=== PATIENT | female | born 1960 | race Caucasian/White ===

== ENCOUNTER → 2016-12-26 | Outpatient (CLI) | payer OTHER ==
--- NOTE | 2016-12-27 09:57 | MM ---
Reason for exam: screening (asymptomatic). Last mammogram was performed 1 year ago. History: Family history of breast cancer in mother at age 63 and breast cancer in sister at age 48. Benign right mammotome panel of the right breast, December 03, 2007. Physical Findings: A clinical breast exam by your physician is recommended on an annual basis and results should be correlated with mammographic findings. MG Screening Mammo w CAD Bilateral CC and MLO view(s) were taken. Prior study comparison: December 21, 2015, bilateral MG screening mammo w CAD. December 19, 2014, bilateral MG screening mammo w CAD. The breast tissue is heterogeneously dense. This may lower the sensitivity of mammography. Finding: There are typically benign calcifications. There is no discrete abnormality. No significant changes in finding since December 21, 2015 and December 19, 2014. ASSESSMENT: Benign, BI-RAD 2 RECOMMENDATION: Routine screening mammogram of both breasts in 1 year.
== END | disposition home or self-care (01) ==
LOC: RADMAMWWP 09:33
PROVIDERS: ATTEND Internal Medicine
DX: Z12.31 Encounter for screening mammogram for malignant neoplasm of breast (principal)

== ENCOUNTER → 2018-01-18 | Outpatient (CLI) | payer OTHER ==
--- NOTE | 2018-01-19 09:53 | MM ---
Reason for exam: screening (asymptomatic). Last mammogram was performed 1 year and 1 month ago. History: Patient is postmenopausal. Family history of breast cancer in mother at age 63 and breast cancer in sister at age 48. Benign right mammotome panel of the right breast, December 03, 2007. Physical Findings: A clinical breast exam by your physician is recommended on an annual basis and results should be correlated with mammographic findings. MG Screening Mammo w CAD Bilateral CC and MLO view(s) were taken. Prior study comparison: December 26, 2016, bilateral MG screening mammo w CAD. December 21, 2015, bilateral MG screening mammo w CAD. The breast tissue is heterogeneously dense. This may lower the sensitivity of mammography. Previous microcalcifications in the right breast. Previous mammotome biopsy in the right breast. No significant changes when compared with prior studies. ASSESSMENT: Benign, BI-RAD 2 RECOMMENDATION: Routine screening mammogram of both breasts in 1 year.
== END | disposition home or self-care (01) ==
LOC: RADMAMWWP 09:42
PROVIDERS: ATTEND Internal Medicine
DX: Z12.31 Encounter for screening mammogram for malignant neoplasm of breast (principal)
CPT/HCPCS: 77067

== ENCOUNTER → 2019-02-01 | Outpatient (CLI) | payer OTHER ==
--- NOTE | 2019-02-05 11:31 | MM ---
Reason for exam: screening (asymptomatic). Last mammogram was performed 1 year ago. History: Patient is postmenopausal. Family history of breast cancer in mother at age 63 and breast cancer in sister at age 48. Benign right mammotome panel of the right breast, December 03, 2007. Physical Findings: A clinical breast exam by your physician is recommended on an annual basis and results should be correlated with mammographic findings. MG Screening Mammo w CAD Bilateral CC and MLO view(s) were taken. Prior study comparison: January 18, 2018, bilateral MG screening mammo w CAD. December 26, 2016, bilateral MG screening mammo w CAD. The breast tissue is heterogeneously dense. This may lower the sensitivity of mammography. There are benign appearing round calcifications bilaterally. Previous mammotome biopsy in the right breast. There is no discrete abnormality. ASSESSMENT: Benign, BI-RAD 2 RECOMMENDATION: Routine screening mammogram of both breasts in 1 year.
== END | disposition home or self-care (01) ==
LOC: RADMAMWWP 07:31
PROVIDERS: ATTEND Internal Medicine
DX: Z12.31 Encounter for screening mammogram for malignant neoplasm of breast (principal)
CPT/HCPCS: 77067

== ENCOUNTER → 2020-05-04 | Outpatient (CLI) | payer OTHER ==
--- NOTE | 2020-05-04 18:36 | BD ---
EXAMINATION TYPE: Axial Bone Density DATE OF EXAM: 05/04/2020 COMPARISON: NONE CLINICAL HISTORY: POSTMENOPAUSAL SCREENING Height: 4 FT 10 1/2 IN Weight: 151 FRAX RISK QUESTIONS: Alcohol (3 or more units per day): NO Family History (Parent hip fracture): NO Glucocorticoids (More than 3mos): NO (Ex: prednisone, prednisolone, methylprednisolone, dexamethasone, and hydrocortisone). History of Fracture in Adulthood: NO Secondary Osteoporosis: 1. Type 1 Diabetes: NO 2. Hyperthyroidism: NO 3. Menopause before 45: NO 4. Malnutrition: NO 5. Chronic liver disease: NO Rheumatoid Arthritis: NO Current Tobacco Use: NO RISK FACTORS HISTORY OF: Family History of Osteoporosis: YES Active: YES Postmenopausal woman: AGE 57 Lost more than 2 inches in height since high school: YES MEDICATIONS: Additional Medications: MULTI Additional History: EXAM MEASUREMENTS: Bone mineral densitometry was performed using the [facility]. Bone mineral density as measured about the Lumbar spine is: ----- L1-L4(G/cm2): 1.029 T Score Values are as follows: ----- L2: -1.4 ----- L3: -0.8 ----- L4: -1.3 ----- L1-L4: -1.3 BASELINE Bone mineral density about the R hip (g/cm2): 1.012 Bone mineral density about the L hip (g/cm2): 0.978 T Score values are as follows: -----R Neck: -0.2 -----L Neck: -0.4 -----R Total: 0.6 -----L Total: 0.5 BASELINE IMPRESSION: Osteopenia (T Score between -2.5 and -1). There is slightly increased risk of fracture and the patient may be considered for treatment. Re-Screen 2-5 years. NOTE: T-SCORE=SD OF THE YOUNG ADULT MEAN.
--- NOTE | 2020-05-05 11:06 | MM ---
Reason for exam: screening (asymptomatic). Last mammogram was performed 1 year and 3 months ago. History: Patient is postmenopausal. Family history of breast cancer in mother at age 63 and breast cancer in sister at age 48. Benign right mammotome panel of the right breast, December 03, 2007. Physical Findings: A clinical breast exam by your physician is recommended on an annual basis and results should be correlated with mammographic findings. MG 3D Screening Mammo W/Cad Bilateral CC and MLO view(s) were taken. Prior study comparison: February 01, 2019, bilateral MG screening mammo w CAD. January 18, 2018, bilateral MG screening mammo w CAD. The breast tissue is heterogeneously dense. This may lower the sensitivity of mammography. Finding #1: There is a 8 mm indistinct oval mass located 4 cm from the nipple in the inner quadrant, anterior middle position of the right breast on CC 42/71 and possible MLO 58/78 and a 7mm oval circular lesion in the left anterior breast on MLO 59/24 and CC 39/77. Finding #2: There are typically benign round calcifications in both breasts. Previous mammotome biopsy in the right breast. New finding since February 01, 2019 and January 18, 2018. ASSESSMENT: Incomplete: need additional imaging evaluation, BI-RAD 0 RECOMMENDATION: Ultrasound of both breasts. [facility] will attempt to contact patient to return for ultrasound.
== END | disposition home or self-care (01) ==
LOC: RADMAMWWP 14:46
PROVIDERS: ATTEND Family Medicine
DX: Z12.31 Encounter for screening mammogram for malignant neoplasm of breast (principal); Z80.3 Family history of malignant neoplasm of breast; M85.80 Other specified disorders of bone density and structure, unspecified site
CPT/HCPCS: 77063; 77067; 77080

== ENCOUNTER → 2020-05-20 | Outpatient (CLI) | payer OTHER ==
--- NOTE | 2020-05-20 11:44 | USB ---
Reason for exam: additional evaluation requested from abnormal screening. History: Patient is postmenopausal. Family history of breast cancer in mother at age 63 and breast cancer in sister at age 48. Benign right mammotome panel of the right breast, December 03, 2007. Physical Findings: Nurse did not find any significant physical abnormalities on exam. US Breast Workup Limited [place] Right limited breast ultrasound including focal area of concern, retroareolar and axilla demonstrates a 1.2 x 1.4 x 0.7cm oval, cystic cluster at 1 o'clock and a 0.6 x 0.7 x 0.3cm oval, complex, cystic lesion at 1 o'clock for which a biopsy is recommended. Left limited breast ultrasound including focal area of concern, retroareolar and axilla demonstrates a 0.7 x 0.9 x 0.5cm oval, lobular, mixed lesion at 12 o'clock for which a biopsy is recommended, a 0.5 x 0.5 x 0.3cm oval, cystic lesion with debris at 3 o'clock and a 0.5 x 0.4 x 0.2cm mild duct ectasia versus collapsed cyst at 11 o'clock. Scanned right breast 12-5 o'clock and left breast zone A whole breast periareolar. These results were verbally communicated with the patient and result sheet given to the patient on 05/20/20. ASSESSMENT: Suspicious, BI-RAD 4 RECOMMENDATION: Ultrasound core biopsy of both breasts. Called Dr. Conley's office with mammographic findings and left message. Biopsy scheduled for 05/26/20 at 12:00. PRELIMINARY REPORT CALLED AND FAXED TO DR. CONLEY ON 05/20/20.
== END | disposition home or self-care (01) ==
LOC: RADUSWWP 09:33
PROVIDERS: ATTEND Family Medicine
DX: R92.8 Other abnormal and inconclusive findings on diagnostic imaging of breast (principal)

== ENCOUNTER → 2020-05-26 | Day surgery (SDC) | payer OTHER ==
[2020-05-26 12:07] VITALS: RESP 16
[2020-05-26 14:35] VITALS: BP 150/83; PULSE 68; TEMP 98
--- NOTE | 2020-05-26 15:35 | USB ---
EXAMINATION TYPE: US biopsy breast VAD LT, US biopsy breast VAD RT, MG post biopsy diagnostic mammo BI wo CAD DATE OF EXAM: 05/26/2020 CLINICAL HISTORY: 59-year-old female R92.8 abn. mammo. Referred for ultrasound- guided bilateral breast biopsies. TECHNIQUE: Ultrasound guided core biopsy of the bilateral breasts. COMPARISON: 05/04/2020 FINDINGS: The procedure of ultrasound guided core biopsy was explained to the patient. Benefits, alternatives, and risks were discussed. An informed consent was then obtained. The patient was placed in supine positioning for imaging and for the procedure. The overlying skin was prepped and draped in usual sterile fashion. Lidocaine was used as anesthetic into the skin and subcutaneous tissue up to area of concern in each breast in turn. SITE 1 - 1:00 mixed lesion: Under ultrasound guidance, a 13-gauge vacuum- assisted mammotome Elite biopsy gun device was used to obtain 7 core samples. Following this, a coil clip was left at the site of biopsy. SITE 1 - 12:00 solid lesion versus complicated cyst: Under ultrasound guidance, a 13-gauge vacuum-assisted mammotome Elite biopsy gun device was used to obtain 3 core samples. Following this, a ribbon clip was left at the site of biopsy. Of note, the lesion collapsed after the first pass. The patient tolerated the procedure well without any immediate complication. The patient was kept in the radiology department for short stay after the procedure and then discharged home in stable condition. Post procedure mammogram shows clips at the site of mammographic nodularity. IMPRESSION: 1. Successful, uncomplicated ultrasound guided core biopsy of 1:00 indeterminate mixed lesion. 2. Successful, uncomplicated ultrasound guided core biopsy of the 12:00 complicated cyst (as the lesion collapsed after the first pass), very low suspicion. Full pathology results to follow. Pathology Results: High Risk A. RIGHT BREAST, ULTRASOUND GUIDED CORE BIOPSY: Proliferative fibrocystic changes including radial scar, usual type ductal hyperplasia with papillomatosis, fibrosis, cysts, apocrine metaplasia, sclerosing adenosis and rare microcalcifications. B. LEFT BREAST, ULTRASOUND GUIDED CORE BIOPSY: Features suggestive of apocrine cyst wall with scar/fibrosis, fat necrosis and inflammation in a background of fibrocystic changes. Recommendation Surgical consult right breast 1 o'clock site for radial scar and papillomatosis. MTDD
== END ==
LOC: RADUSWWP 11:53
PROVIDERS: ATTEND Family Medicine
DX: N60.11 Diffuse cystic mastopathy of right breast (principal); N62 Hypertrophy of breast; N60.81 Other benign mammary dysplasias of right breast; R92.8 Other abnormal and inconclusive findings on diagnostic imaging of breast
CPT/HCPCS: 88305; 77066; 19083; 19084; A4648; J2001

== ENCOUNTER 2020-08-17 06:47 | Day surgery (SDC) | payer OTHER ==
[2020-08-13 13:03] VITALS: BMI 27.3
[~2020-08-17 06:47] MED LIST: ACETAMINOPHEN TAB 500 MG TAB PO PRN; DEXAMETHASONE SOD PHOSPHATE 4 MG/ML 1 ML VIAL IV ONE; HEPARIN SODIUM,PORCINE 5,000 UNIT/ML 1 ML VIAL SQ PRN; HYDROmorphone 0.5 MG/0.5 ML SYRINGE IVP PRN; LACTATED RINGERS 1,000 ML IV SCH; LIDOCAINE 1% (10MG/ML) FOR IV START INTRADERMA PRN; MIDAZOLAM 2 MG/2 ML VIAL IV PRN; ONDANSETRON 4 MG/2 ML VIAL IVP ONE; Pre Op ABX Message 1 EACH MISC MISCELLANE ONE
[2020-08-17] MEDS ORDERED: ALPRAZolam 0.25 MG TAB ONE (07:23)
[2020-08-17] MEDS ORDERED: ALPRAZolam 0.25 MG TAB PO ONE (07:24)
--- NOTE | 2020-08-17 07:58 | P.GSHP ---
History of Present Illness H&P Date: 08/17/20 Chief Complaint: abnormal right mammogram Please refer to recent history and physical from June. Patient had bilateral core biopsies performed. Radial scar identified on the right-hand side. Here today for right breast wire localization biopsy. No additional changes to the history and physical dictated previously. Past Medical History Past Medical History: Hyperlipidemia Additional Past Medical History / Comment(s): NO MEDS AT THIS TIME History of Any Multi-Drug Resistant Organisms: None Reported Past Surgical History: Orthopedic Surgery Additional Past Surgical History / Comment(s): ABDOMINOPLASTY. LT SHOULDER SX Past Anesthesia/Blood Transfusion Reactions: No Reported Reaction Smoking Status: Never smoker - Past Family History Father Family Medical History: Deep Vein Thrombosis (DVT) Mother Sister(s) Family Medical History: Cancer Additional Family Medical History / Comment(s): BREAST Medications and Allergies Home Medications Medication Instructions Recorded Confirmed Type No Known Home Medications 08/13/20 08/17/20 History Allergies Allergy/AdvReac Type Severity Reaction Status Date / Time No Known Allergies Allergy Verified 08/17/20 07:11 Surgical - Exam Vital Signs Temp Pulse Resp BP Pulse Ox 96.9 F L 72 16 153/76 98 08/17/20 07:00 08/17/20 07:00 08/17/20 07:00 08/17/20 07:00 08/17/20 07:00 Physical exam: General: Well-developed, well-nourished HEENT: Normocephalic, sclerae nonicteric Right breast: No masses, no adenopathy Left breast: No masses, no adenopathy Abdomen: Nontender, nondistended Extremities: No edema Neuro: Alert and oriented Assessment and Plan (1) Radial scar of right breast Narrative/Plan: Will proceed with wire localized biopsy right breast at this time. Risks of bleeding, infection, scarring, dimpling, numbness, possible need for further surgery reviewed. She understands and wishes to proceed. Current Visit: Yes Status: Acute Code(s): N64.89 - OTHER SPECIFIED DISORDERS OF BREAST SNOMED Code(s): 44249872979032011
[2020-08-17] MEDS ORDERED: LIDOCAINE 1% INJ 10MG/ML (20 ML MDV) SQ ONE (08:28)
[2020-08-17] MEDS ORDERED: MIDAZOLAM 2 MG/2 ML VIAL ONE (09:03)
[2020-08-17] MEDS ORDERED: ePHEDrine SULFATE/0.9% NACL/PF 50 MG/5 ML SYRINGE IV ONE (09:03)
[2020-08-17] MEDS ORDERED: fentaNYL (PF) 50 MCG/ML 2 ML AMP ONE (09:03)
[2020-08-17] MEDS ORDERED: PROPOFOL 10 MG/ML 20 ML VIAL IV ONE (09:03)
[2020-08-17] MEDS ORDERED: LIDOCAINE 1% INJ 10MG/ML (20 ML MDV) ONE (09:03)
[2020-08-17] MEDS ORDERED: KETOROLAC 15 MG/ML 1 ML VIAL ONE (09:03)
[2020-08-17] MEDS ORDERED: SODIUM CHLORIDE 0.9% IV ONE ×2 (09:11)
[2020-08-17] MEDS ORDERED: CEFAZOLIN IV ONE ×2 (09:11)
[2020-08-17] MEDS ORDERED: BUPIVACAIN-EPI 0.25%-1:200,000 30 ML VIAL SQ ONE ×2 (09:31→09:47)
[2020-08-17] MEDS ORDERED: LACTATED RINGERS 1,000 ML IV ONE (09:55)
[2020-08-17 10:05] VITALS: TEMP 97
[2020-08-17] MEDS ORDERED: NALOXONE 0.4 MG/ML 1 ML VIAL IV PRN (10:07)
[2020-08-17] MEDS ORDERED: traMADol 50 MG TAB PO PRN (10:07)
--- NOTE | 2020-08-17 10:09 | P.OP ---
Date of Procedure: 08/17/20 Procedure(s) Performed: PREOPERATIVE DIAGNOSIS: Abnormal right mammogram POSTOPERATIVE DIAGNOSIS: Same PROCEDURE: Right Breast wire localization biopsy SURGEON: Danny EBL: Minimal ANESTHESIA: Sedation plus local COMPLICATIONS: None OPERATIVE PROCEDURE: Patient was placed on the operating room table in the s upine position. The patient's breast was prepped and draped in usual sterile fashion. A curvilinear incision was made adjacent to the areola. Dissection through the subcutaneous tissues down to the wire took place using electrocautery. I followed the wire down into the breast tissue. The breast tissue around the posterior aspect of the wire was fully excised using electrocautery. The specimen was sent for specimen radiogram. The clip was present within the specimen. The subcutaneous tissues were inspected. No bleeding was seen. The subcutaneous tissues were closed using 3-0 Vicryl linn tures. The skin was closed using interrupted 4-0 Monocryl sutures. Skin glue and sterile dressings were applied. DISPOSITION: Stable to recovery room
--- NOTE | 2020-08-17 10:36 | MM ---
EXAMINATION TYPE: MG pre op needle loc RT, MG surgical specimen RT DATE OF EXAM: 08/17/2020 COMPARISON: Prior mammogram May 26, 2020 and older mammograms. CLINICAL HISTORY: Biopsy-proven high risk lesion right breast. TECHNIQUE: Needle localization with wire placement and surgical excision of area of concern in the [facility]. FINDINGS: The procedure of needle localization with wire placement and than surgical excision was exp lained to the patient. Benefits, alternatives, and risks were discussed. An informed consent was th en obtained. The shortest pathway for procedure was chosen. Shortest pathway was medial approach. The overlying s kin was prepped and draped in usual sterile fashion. Lidocaine is used as anesthetic into the skin an d subcutaneous tissue up to the level of area of concern. A 5 cm needle was used. It was placed via a medial approach under mammographic guidance. Subsequent 90 degrees mammogram show the needle to b e in satisfactory position relative to the targeted area. At this point, wire was placed and the nee dle was withdrawn. The wire was fixed to patient's skin. Images were marked for surgeon. The patient tolerated the procedure well without any immediate complication. The patient was kept in the radiology department for short stay after the procedure and then taken to surgery for surgical e xcision. Targeted clip is identified in specimen mammogram. Targeted wire not identified. Wire was d isplaced during surgery. The patient was kept in hospital for short stay after the procedure and then discharged home in stable condition. IMPRESSION: Successful, uncomplicated needle localization with wire placement and surgical excision o f targeted clip in the right breast, full pathology results to follow.
[2020-08-17 11:20] VITALS: BP 132/84; PULSE 72; RESP 18
== END 2020-08-17 11:25 | disposition home or self-care (01) ==
LOC: OR 06:47
PROVIDERS: ATTEND Surgery
DX: N60.11 Diffuse cystic mastopathy of right breast (principal); N60.21 Fibroadenosis of right breast; N60.81 Other benign mammary dysplasias of right breast; R92.0 Mammographic microcalcification found on diagnostic imaging of breast; N64.89 Other specified disorders of breast; E78.5 Hyperlipidemia, unspecified; M26.609 Unspecified temporomandibular joint disorder, unspecified side; Z98.890 Other specified postprocedural states; Z82.49 Family history of ischemic heart disease and other diseases of the circulatory system; Z80.3 Family history of malignant neoplasm of breast
CPT/HCPCS: 88307; 76098; 19281; 19125; J2250; J1644; J1100; J2405; J0690; J2001; J3010; J1885; J2704

== ENCOUNTER → 2021-02-15 | Outpatient (CLI) | payer OTHER ==
--- NOTE | 2021-02-15 10:17 | MM ---
Reason for exam: follow-up at short interval from prior study. Last mammogram was performed 9 months ago. History: Patient is postmenopausal and has history of high-risk lesion on a previous biopsy at age 59. Family history of breast cancer in mother at age 63 and breast cancer in sister at age 48. Benign MG pre op needle loc RT of the right breast, August 17, 2020. High risk US biopsy breast VAD LT of the left breast, May 26, 2020. High risk US biopsy breast VAD RT of the right breast, May 26, 2020. Benign right mammotome panel of the right breast, December 03, 2007. Physical Findings: Nurse did not find any significant physical abnormalities on exam. MG 3D Diag Mammo W/Cad [place] Bilateral CC and MLO view(s) were taken. Prior study comparison: May 26, 2020, bilateral MG diagnostic tali BI wo CAD. May 04, 2020, bilateral MG 3d screening mammo w/cad. February 01, 2019, bilateral MG screening mammo w CAD. January 18, 2018, bilateral MG screening mammo w CAD. December 26, 2016, bilateral MG screening mammo w CAD. December 21, 2015, bilateral MG screening mammo w CAD. The breast tissue is heterogeneously dense. This may lower the sensitivity of mammography. Previous mammotome biopsy in the right breast. Posterior central left MLO asymmetric density stable corresponds to the 2016 study. Some focal density approximately 10 o'clock near site of previous clip likely scar, 6 month follow up. These results were verbally communicated with the patient and result sheet given to the patient on 02/15/21. ASSESSMENT: Incomplete: need additional imaging evaluation, BI-RAD 0 RECOMMENDATION: Ultrasound of the right breast.
--- NOTE | 2021-02-15 10:19 | USB ---
Reason for exam: additional evaluation requested from abnormal screening. History: Patient is postmenopausal and has history of high-risk lesion on a previous biopsy at age 59. Family history of breast cancer in mother at age 63 and breast cancer in sister at age 48. Benign MG pre op needle loc RT of the right breast, August 17, 2020. High risk US biopsy breast VAD LT of the left breast, May 26, 2020. High risk US biopsy breast VAD RT of the right breast, May 26, 2020. Benign right mammotome panel of the right breast, December 03, 2007. US Breast RT Right complete breast ultrasound includes all four quadrants, the retroareolar region and axilla. Finding demonstrates a 4 x 3 x 7mm oval, cystic, mixed lesion at 12 o'clock, a 2 x 2 x 3mm oval lesion too small to characterize at 2 o'clock, a 4 x 2 x 4mm oval, cystic lesion too small to characterize at 5 o'clock and a 23 x 4 x 12mm cystic cluster at 8 o'clock likely fibrocystic change. These results were verbally communicated with the patient and result sheet given to the patient on 02/15/21. ASSESSMENT: Probably benign, BI-RAD 3 RECOMMENDATION: Follow-up diagnostic mammogram of the right breast in 6 months.
== END | disposition home or self-care (01) ==
LOC: RADUSWWP 07:56
PROVIDERS: ATTEND Surgery
DX: N60.01 Solitary cyst of right breast (principal); N64.89 Other specified disorders of breast; Z78.0 Asymptomatic menopausal state; Z80.3 Family history of malignant neoplasm of breast
CPT/HCPCS: 77062; 77066

== ENCOUNTER → 2021-08-18 | Outpatient (CLI) | payer OTHER ==
--- NOTE | 2021-08-18 11:38 | MM ---
Reason for exam: screening (asymptomatic). Last mammogram was performed 6 months ago. History: Patient is postmenopausal and has history of high-risk lesion on a previous biopsy at age 59. Family history of breast cancer in mother at age 63 and breast cancer in sister at age 48. Benign MG pre op needle loc RT of the right breast, August 17, 2020. High risk US biopsy breast VAD LT of the left breast, May 26, 2020. High risk US biopsy breast VAD RT of the right breast, May 26, 2020. Benign right mammotome panel of the right breast, December 03, 2007. Physical Findings: Nurse did not find any significant physical abnormalities on exam. MG 3D Diag Mammo W/Cad RT CC and MLO view(s) were taken of the right breast. Prior study comparison: February 15, 2021, bilateral MG 3d diag mammo w/cad [place]. May 26, 2020, bilateral MG diagnostic tali BI wo CAD. The breast tissue is heterogeneously dense. This may lower the sensitivity of mammography. Previous mammotome biopsy in the right breast. No significant new findings when compared with previous films. These results were verbally communicated with the patient and result sheet given to the patient on 08/18/21. ASSESSMENT: Benign, BI-RAD 2 RECOMMENDATION: Routine screening mammogram of both breasts in 6 months.
== END | disposition home or self-care (01) ==
LOC: RADMAMWWP 10:39
PROVIDERS: ATTEND Surgery
DX: R92.2 Inconclusive mammogram (principal); Z80.3 Family history of malignant neoplasm of breast; Z78.0 Asymptomatic menopausal state
CPT/HCPCS: 77061; 77065

== ENCOUNTER → 2022-03-08 | Outpatient (CLI) | payer OTHER ==
--- NOTE | 2022-03-10 07:54 | MM ---
Reason for Exam: Screening (asymptomatic). Last screening mammogram was performed 12 month(s) ago. Patient History: Menarche at age 13. First Full-Term at age 23. Postmenopausal. 08/17/2020, Benign Core Biopsy on the right side. 05/26/2020, High risk Core Biopsy on the left side. 05/26/2020, High risk Core Biopsy on the right side. 12/03/2007, Benign Core Biopsy on the right side. Sister had breast cancer, age 48. Mother had breast cancer, age 63. Risk Values: Kenzie 5 year model risk: 8.6%. NCI Lifetime model risk: 36.9%. Prior Study Comparison: 05/26/2020 Bilateral Diagnostic Mammogram, [facility]. 02/15/2021 Bilateral Diagnostic Mammogram, [facility]. 08/18/2021 Right Diagnostic Mammogram, [facility]. Tissue Density: The breast tissue is heterogeneously dense. This may lower the sensitivity of mammography. Findings: Analyzed By CAD. There are 4 markers present within the bilateral breasts. No suspicious groups of microcalcifications, spiculated or lobular masses, architectural distortion or other secondary signs of malignancy are mammographically apparent. Overall Assessment: Benign, BI-RAD 2 Management: Screening Mammogram of both breasts in 1 year. A negative mammogram report should not preclude additional follow up of suspicious palpable abnormalities. Patient should continue monthly self breast exam. A clinical breast exam by your physician is recommended on an annual basis and results should be correlated with mammographic findings. Electronically signed and approved by: Chema Smith D.O. Radiologis
== END | disposition home or self-care (01) ==
LOC: RADMAMWWP 11:06
PROVIDERS: ATTEND Family Medicine
DX: Z12.31 Encounter for screening mammogram for malignant neoplasm of breast (principal); Z78.0 Asymptomatic menopausal state; Z80.3 Family history of malignant neoplasm of breast
CPT/HCPCS: 77063; 77067

== ENCOUNTER → 2022-05-25 | Outpatient (CLI) | payer OTHER ==
[2022-05-25 11:18] LABS: ALT 10 U/L (8-44); AST 21 U/L (13-35); African American GFR (CKD) 109.1 (60.0-200.0); Albumin 4.8 g/dL (3.8-4.9); Albumin/Globulin Ratio 1.66 (1.60-3.17); Alkaline Phosphatase 67 U/L (41-126); BUN/Creat Ratio 20.86 Ratio (12.00-20.00); Blood Urea Nitrogen 14.6 mg/dL (9.0-27.0); Calcium 9.7 mg/dL (8.7-10.3); Carbon Dioxide 27.4 mmol/L (20.0-27.5); Chloride 102 mmol/L (96-109); Chol/HDL Ratio 3.92 Ratio; Globulin 2.9 g/dL (1.6-3.3); Glucose 98 mg/dL (70-110); LDL Cholesterol,Calculated 151.8 mg/dL (0.0-131.0); Non-African American GFR(CKD) 94.2 (60.0-200.0); Potassium 4.3 mmol/L (3.5-5.5); Sodium 139 mmol/L (135-145); Total Protein 7.7 g/dL (6.2-8.2); VLDL Calculation 15.08 mg/dL (5.00-40.00)
[2022-05-25 16:20] LABS: Basophils # (A) 0.04 X 10*3/uL (0.00-0.10); Basophils % (A) 0.9 %; Eosinophils # (A) 0.03 X 10*3/uL (0.04-0.35); Eosinophils % (A) 0.7 %; HCT 41.2 % (37.2-46.3); HGB 13.9 g/dL (12.0-15.0); Immature Grans, Automated 0.2 %; Lymphocytes % (A) 43.8 %; MCH 31.5 pg (27.0-32.0); MCHC 33.7 g/dL (32.0-37.0); MCV 93.4 fL (80.0-97.0); Mean Platelet Volume 11.2 fL (9.5-12.2); Monocytes # (A) 0.25 X 10*3/uL (0.20-1.00); Monocytes % (A) 5.5 %; NRBC Per 100 WBC 0 /100 WBCS (0.0-0.0); Neutrophils # (A) 2.24 X 10*3/uL (1.80-7.70); Neutrophils % (A) 48.9 %; Platelet Count 273 X 10*3/uL (140-440); RBC 4.41 X 10*6/uL (4.10-5.20); RDW 11.9 % (11.5-14.5); WBC 4.57 X 10*3/uL (4.50-10.00)
== END | disposition home or self-care (01) ==
LOC: LABWHC1 07:38
PROVIDERS: ATTEND Family Medicine
DX: Z00.00 Encounter for general adult medical examination without abnormal findings (principal); E78.2 Mixed hyperlipidemia; E53.8 Deficiency of other specified B group vitamins
CPT/HCPCS: 36415; 80053; 80061; 82607; 84443; 85025

== ENCOUNTER → 2023-03-16 | Outpatient (CLI) | payer OTHER ==
--- NOTE | 2023-03-16 11:48 | MM ---
Reason for Exam: Screening (asymptomatic). Last mammogram was performed 1 year(s) and 1 month(s) ago. Patient History: Menarche at age 13. First Full-Term at age 23. Postmenopausal. 08/17/2020, Benign Core Biopsy on the right side. 05/26/2020, High risk Core Biopsy on the left side. 05/26/2020, High risk Core Biopsy on the right side. 12/03/2007, Benign Core Biopsy on the right side. Sister had breast cancer, age 48. Mother had breast cancer, age 63. Risk Values: Kenzie 5 year model risk: 8.9%. NCI Lifetime model risk: 36.0%. Prior Study Comparison: 02/15/2021 Bilateral Diagnostic Mammogram, [facility]. 08/18/2021 Right Diagnostic Mammogram, [facility]. 03/08/2022 Bilateral MG 3D screening mammo w/cad, [facility]. Tissue Density: The breast tissue is heterogeneously dense. This may lower the sensitivity of mammography. Findings: Analyzed By CAD. Biopsy clips bilaterally. There is no suspicious group of microcalcifications or new suspicious mass in either breast. Overall Assessment: Benign, BI-RAD 2 Management: Screening Mammogram of both breasts in [address] [facility] will attempt to contact patient to return for supplemental views and ultrasound if indicated. Patient should continue monthly self-breast exams. A clinical breast exam by your physician is recommended on an annual basis. This exam should not preclude additional follow-up of suspicious palpable abnormalities. Note on Kenzie scores and lifetime risk: 1. A Kenzie score greater than 3% is considered moderate risk. If this is the case, consider specialist referral to assess eligibility for a risk reducing agent. 2. If overall lifetime risk for the development of breast cancer is 20% or higher, the patient may qualify for future screening with alternating mammogram and breast MRI. Electronically signed and approved by: Sam Gregorio DO
== END | disposition home or self-care (01) ==
LOC: RADMAMWWP 09:17
PROVIDERS: ATTEND Family Medicine
DX: Z12.31 Encounter for screening mammogram for malignant neoplasm of breast (principal); Z78.0 Asymptomatic menopausal state; Z80.3 Family history of malignant neoplasm of breast
CPT/HCPCS: 77063; 77067

== ENCOUNTER → 2024-03-22 | Outpatient (CLI) | payer OTHER ==
--- NOTE | 2024-03-29 21:36 | MM ---
Reason for Exam: Screening (asymptomatic). Last screening mammogram was performed 12 month(s) ago. Patient History: Menarche at age 13. First Full-Term at age 23. Postmenopausal. 08/17/2020, Benign Core Biopsy on the right side. 05/26/2020, High risk Core Biopsy on the left side. 05/26/2020, High risk Core Biopsy on the right side. 12/03/2007, Benign Core Biopsy on the right side. Sister had breast cancer, age 48. Mother had breast cancer, age 63. Mother tested for BRCA1 outcome was negative. Risk Values: Mary Ann 5 year model risk: 9.2%. NCI Lifetime model risk: 35.2%. Prior Study Comparison: 08/18/2021 Right Diagnostic Mammogram, [facility]. 03/08/2022 Bilateral MG 3D screening mammo w/cad, [facility]. 03/16/2023 Bilateral MG 3D screening mammo w/cad, [facility]. Tissue Density: The breasts are heterogeneously dense, which may obscure small masses. Findings: Analyzed By CAD. Bilateral asymmetric densities are again seen. Microclip right breast from prior biopsy. Asymmetric density superior right MLO view just above the retroareolar plane at a middle depth appears more pronounced. Similarly on the left, recommend additional views to exclude subtle underlying distortion. Note patient's increased risk scores. Overall Assessment: Incomplete: need additional imaging evaluation, BI-RAD 0 Management: Special View Mammogram of both breasts. Diagnostic Breast Ultrasound of both breasts. SEE NOTE BELOW IN REGARDS TO PATIENT'S INCREASED 5 YEAR MARY ANN SCORE AND INCREASED LIFETIME RISK SCORE. [facility] will attempt to contact patient to return for supplemental views and ultrasound if indicated. Note on Mary Ann scores and lifetime risk: 1. A Mary Ann score greater than 3% is considered moderate risk. If this is the case, consider specialist referral to assess eligibility for a risk reducing agent. 2. If overall lifetime risk for the development of breast cancer is 20% or higher, the patient may qualify for future screening with alternating mammogram and breast MRI. Electronically signed and approved by: Monroe Bruner M.D. Radiologist
== END | disposition home or self-care (01) ==
LOC: RADMAMWWP 10:30
PROVIDERS: ATTEND Family Medicine
DX: Z12.31 Encounter for screening mammogram for malignant neoplasm of breast (principal); R92.333 Mammographic heterogeneous density, bilateral breasts; Z78.0 Asymptomatic menopausal state; Z80.3 Family history of malignant neoplasm of breast
CPT/HCPCS: 77063; 77067

== ENCOUNTER → 2024-04-04 | Outpatient (CLI) | payer OTHER ==
--- NOTE | 2024-04-04 10:45 | MM ---
Reason for Exam: Additional evaluation requested from abnormal screening. Last screening mammogram was performed less than 1 month ago. Patient History: Menarche at age 13. First Full-Term at age 23. Postmenopausal. Patient has history of breast feeding. 08/17/2020, Benign Core Biopsy on the right side. 05/26/2020, High risk Core Biopsy on the left side. 05/26/2020, High risk Core Biopsy on the right side. 12/03/2007, Benign Core Biopsy on the right side. Sister had breast cancer, age 48. Mother had breast cancer, age 63. Mother tested for BRCA1 outcome was negative. Risk Values: Kenzie 5 year model risk: 9.2%. NCI Lifetime model risk: 35.2%. Prior Study Comparison: 12/26/2016 Bilateral Screening Mammogram, [facility]. 01/18/2018 Bilateral Screening Mammogram, [facility]. 02/01/2019 Bilateral Screening Mammogram, [facility]. 05/04/2020 Bilateral Screening Mammogram, [facility]. 05/26/2020 Bilateral Diagnostic Mammogram, [facility]. 02/15/2021 Bilateral Diagnostic Mammogram, [facility]. 08/18/2021 Right Diagnostic Mammogram, [facility]. 03/08/2022 Bilateral MG 3D screening mammo w/cad, [facility]. 03/16/2023 Bilateral MG 3D screening mammo w/cad, [facility]. 03/22/2024 Bilateral MG 3D screening mammo w/cad, [facility]. Tissue Density: The breasts are heterogeneously dense, which may obscure small masses. Findings: Analyzed By CAD. No persistent mass or nodule within either breast. Overall Assessment: Benign, BI-RAD 2 Management: Screening Mammogram of both breasts in 1 year. . Results were given to the patient verbally at the time of exam. Patient should continue monthly self-breast exams. A clinical breast exam by your physician is recommended on an annual basis. This exam should not preclude additional follow-up of suspicious palpable abnormalities. Note on Kenzie scores and lifetime risk: 1. A Kenzie score greater than 3% is considered moderate risk. If this is the case, consider specialist referral to assess eligibility for a risk reducing agent. 2. If overall lifetime risk for the development of breast cancer is 20% or higher, the patient may qualify for future screening with alternating mammogram and breast MRI. Electronically signed and approved by: Rox SterlingD. Radiologis
== END | disposition home or self-care (01) ==
LOC: RADMAMWWP 10:02
PROVIDERS: ATTEND Family Medicine
DX: R92.8 Other abnormal and inconclusive findings on diagnostic imaging of breast (principal); R92.333 Mammographic heterogeneous density, bilateral breasts; Z78.0 Asymptomatic menopausal state; Z80.3 Family history of malignant neoplasm of breast
CPT/HCPCS: 77062; 77066

== ENCOUNTER → 2024-05-20 | Outpatient (CLI) | payer OTHER ==
[2024-05-20 15:29] LABS: Basophils # (A) 0.03 X 10*3/uL (0.00-0.10); Basophils % (A) 0.6 %; Eosinophils # (A) 0.02 X 10*3/uL (0.04-0.35); Eosinophils % (A) 0.4 %; HCT 42.5 % (37.2-46.3); HGB 14.5 g/dL (12.0-15.0); Lymphocytes # (A) 1.67 X 10*3/uL (0.90-5.00); Lymphocytes % (A) 33.7 %; MCH 31.5 pg (27.0-32.0); MCHC 34.1 g/dL (32.0-37.0); MCV 92.4 FL (80.0-97.0); Mean Platelet Volume 10.5 FL (9.5-12.2); NRBC Per 100 WBC 0 X 10*3/uL (0.00-0.01); Neutrophils # (A) 3.02 X 10*3/uL (1.80-7.70); Neutrophils % (A) 61.1 %; Platelet Count 279 X 10*3/uL (140-440); RDW 12.2 % (11.5-14.5); WBC 4.95 X 10*3/uL (4.50-10.00)
[2024-05-20 15:49] LABS: ALT 28 U/L (8-44); AST 29 U/L (13-35); Albumin 4.9 g/dL (3.8-4.9); Albumin/Globulin Ratio 1.88 Ratio (1.60-3.17); Alkaline Phosphatase 63 U/L (41-126); BUN/Creat Ratio 18.33 Ratio (12.00-20.00); Calcium 9.6 mg/dL (8.7-10.3); Carbon Dioxide 26.1 mmol/L (21.6-31.8); Chloride 103 mmol/L (96-109); Chol/HDL Ratio 3.84 Ratio; Globulin 2.6 g/dL (1.6-3.3); Glucose 94 mg/dL (70-110); LDL Cholesterol,Calculated 173.9 mg/dL (0.0-131.0); Potassium 4.2 mmol/L (3.5-5.5); Sodium 140 mmol/L (135-145); Total Bilirubin 0.3 mg/dL (0.3-1.2); Total Protein 7.5 g/dL (6.2-8.2)
== END | disposition home or self-care (01) ==
LOC: LABWHC1 11:02
PROVIDERS: ATTEND Family Medicine
DX: M81.6 Localized osteoporosis [Lequesne] (principal); D55.9 Anemia due to enzyme disorder, unspecified; E53.8 Deficiency of other specified B group vitamins
CPT/HCPCS: 36415; 80053; 80061; 82306; 82607; 84443; 85025

== ENCOUNTER → 2025-04-07 | Outpatient (CLI) | payer OTHER ==
--- NOTE | 2025-04-07 08:40 | MM ---
Reason for Exam: Screening (asymptomatic). Last screening mammogram was performed 12 month(s) ago. Patient History: Menarche at age 13. First Full-Term at age 23. Postmenopausal. Patient has history of breast feeding. 08/17/2020, Benign Core Biopsy on the right side. 05/26/2020, High risk Core Biopsy on the left side. 05/26/2020, High risk Core Biopsy on the right side. 12/03/2007, Benign Core Biopsy on the right side. Sister had breast cancer, age 48. Mother had breast cancer, age 63. Mother tested for BRCA1 outcome was negative. Risk Values: Mary Ann 5 year model risk: 9.4%. NCI Lifetime model risk: 34.3%. Prior Study Comparison: 01/18/2018 Bilateral Screening Mammogram, [facility]. 02/01/2019 Bilateral Screening Mammogram, [facility]. 05/04/2020 Bilateral Screening Mammogram, [facility]. 05/26/2020 Bilateral Diagnostic Mammogram, [facility]. 02/15/2021 Bilateral Diagnostic Mammogram, [facility]. 08/18/2021 Right Diagnostic Mammogram, [facility]. 03/08/2022 Bilateral MG 3D screening mammo w/cad, [facility]. 03/16/2023 Bilateral MG 3D screening mammo w/cad, [facility]. 03/22/2024 Bilateral MG 3D screening mammo w/cad, [facility]. 04/04/2024 Bilateral MG 3D work up w/cad [facility], [facility]. Tissue Density: The breasts are heterogeneously dense, which may obscure small masses. Findings: Analyzed By CAD. Unchanged bilateral areas of asymmetric density. There is a microclip on either side from prior biopsies. There is no suspicious group of microcalcifications or new suspicious mass in either breast. Overall Assessment: Benign, BI-RAD 2 Management: Screening Mammogram of both breasts in 1 year. SEE NOTE BELOW IN REGARDS TO THE PATIENT'S INCREASED 5 YEAR MARY ANN SCORE AND INCREASED LIFETIME RISK SCORE. Patient should continue monthly self-breast exams. A clinical breast exam by your physician is recommended on an annual basis. This exam should not preclude additional follow-up of suspicious palpable abnormalities. Note on Mary Ann scores and lifetime risk: 1. A Mary Ann score greater than 3% is considered moderate risk. If this is the case, consider specialist referral to assess eligibility for a risk reducing agent. 2. If overall lifetime risk for the development of breast cancer is 20% or higher, the patient may qualify for future screening with alternating mammogram and breast MRI. [facility], , 04/07/2025 8:37 AM. Electronically signed and approved by: Monroe Bruner M.D. Radiologist
== END | disposition home or self-care (01) ==
LOC: RADMAMWWP 07:19
PROVIDERS: ATTEND Family Medicine
DX: Z12.31 Encounter for screening mammogram for malignant neoplasm of breast (principal); R92.333 Mammographic heterogeneous density, bilateral breasts; Z78.0 Asymptomatic menopausal state; Z80.3 Family history of malignant neoplasm of breast
CPT/HCPCS: 77063; 77067